=== PATIENT | female | born 2000 | race Caucasian/White ===

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

== ENCOUNTER 2020-03-27 09:20 | Emergency (ER) | payer BC, MEDICAID ==
[~2020-03-27] VITALS: Ht 162.6 cm; Wt 85.0 kg
[~2020-03-27 09:20] MED LIST changes: +ZOFRAN4 MG/TAB PO
[2020-03-27] MEDS ORDERED: CVS OMEPRAZOLE20 M1 PO (09:46)
[2020-03-27] MEDS ORDERED: COLD (09:47)
[2020-03-27] MEDS ORDERED: [UNRECOGNIZED DRUG - OTHER] (09:47)
[2020-03-27 10:14] LABS: IMMATURE GRANULOCYTES 0.4 % (0.0-5.0); MEAN CELL VOLUME 86.8 fL CALC (80.0-100.0); MEAN CORPUSCULAR HGB 27.6 pG CALC (26.0-32.0); MEAN CORPUSCULAR HGB CONC 31.9 g/dL CAL (32.0-36.0); NEUT# 5.74 thou/uL (2.00-7.15); RED BLOOD COUNT 4.16 mill/uL (4.20-5.60); RED CELL DISTRI WIDTH 12.6 % (11.5-15.5)
[2020-03-27 10:24] LABS: URINE BILIRUBIN - DIPSTICK NEGATIVE (NEGATIVE); URINE BLOOD DIPSTICK NEGATIVE (NEGATIVE); URINE COLOR YELLOW; URINE GLUCOSE - DIPSTICK NEGATIVE (NEGATIVE); URINE KETONE NEGATIVE (NEGATIVE); URINE LEUK ESTERASE NEGATIVE (NEGATIVE); URINE NITRITE - DIPSTICK NEGATIVE (Negative); URINE PROTEIN - DIPSTICK NEGATIVE (NEG-TRACE); URINE UROBILINOGEN - DIPSTICK 0.2 E.U./dL (0.2)
[2020-03-27 10:25] LABS: HEMATOCRIT 36.1 % (37.0-47.0); HEMOGLOBIN 11.5 g/dl (12.0-16.0)
[2020-03-27 10:28] LABS: CARBON DIOXIDE 21 mmol/l (22-30); CHLORIDE 107 mmol/l (95-108); CREATININE 0.4 mg/dL (0.5-1.0); GFR > 60 ML/MIN (>=60 (CALC)); GFR FOR AFR.AMER. > 60 ML/MIN (>=60 (CALC)); SGOT/AST 16 u/l (14-36); SODIUM 136 mmol/l (137-146)
[2020-03-27 10:30] LABS: ANION GAP 12 (6-22 (CALC)); POTASSIUM 3.9 mmol/l (3.5-5.1)
[2020-03-27 10:34] LABS: ALBUMIN 3.1 g/dL (3.2-5.0); ALKALINE PHOSPHATASE 138 u/l (38-126); BILIRUBIN, TOTAL 0.2 mg/dL (0.0-1.4); BUN 2 mg/dL (8-21); BUN/CREATININE RATIO 5 (12-20 (CALC)); TOTAL PROTEIN 5.8 g/dL (6.3-8.2)
[2020-03-27 13:00] VITALS: BP 115/80
== END 2020-03-27 13:00 | DRG 833 ==
LOC: ED 09:20
PROVIDERS: Family Medicine
DX: O99.283 Endocrine, nutritional and metabolic diseases complicating pregnancy, third trimester (principal); E86.0 Dehydration; O99.413 Diseases of the circulatory system complicating pregnancy, third trimester; R00.0 Tachycardia, unspecified; Z3A.34 34 weeks gestation of pregnancy; Z20.828 Contact with and (suspected) exposure to other viral communicable diseases

== ENCOUNTER 2020-06-10 03:31 | Emergency (ER) | payer BC, MEDICAID ==
[~2020-06-10] VITALS: Ht 157.5 cm; Wt 81.8 kg
[~2020-06-10 03:31] MED LIST changes: +COLD; +CVS OMEPRAZOLE20 M1 PO; +[UNRECOGNIZED DRUG - OTHER]
[2020-06-10 03:56] LABS: HEMATOCRIT 34.4 % (37.0-47.0); HEMOGLOBIN 10.2 g/dl (12.0-16.0); IMMATURE GRANULOCYTES 0.1 % (0.0-5.0); MEAN CORPUSCULAR HGB 23.3 pG CALC (26.0-32.0); MEAN CORPUSCULAR HGB CONC 29.7 g/dL CAL (32.0-36.0); NEUT# 2.99 thou/uL (2.00-7.15); RED BLOOD COUNT 4.38 mill/uL (4.20-5.60); RED CELL DISTRI WIDTH 14.9 % (11.5-15.5)
[2020-06-10 03:57] LABS: MEAN CELL VOLUME 78.5 fL CALC (80.0-100.0)
[2020-06-10 04:11] LABS: ALKALINE PHOSPHATASE 117 u/l (38-126); AMYLASE 84 u/l (30-110); BILIRUBIN, TOTAL 0.2 mg/dL (0.0-1.4); BUN 13 mg/dL (8-21); BUN/CREATININE RATIO 16 (12-20 (CALC)); CHLORIDE 107 mmol/l (95-108); CREATININE 0.8 mg/dL (0.5-1.0); GFR > 60 ML/MIN (>=60 (CALC)); GFR FOR AFR.AMER. > 60 ML/MIN (>=60 (CALC)); LIPASE 134 u/l (23-300); POTASSIUM 3.5 mmol/l (3.5-5.1); SODIUM 141 mmol/l (137-146)
[2020-06-10 04:12] LABS: ALBUMIN 4.3 g/dL (3.2-5.0); ANION GAP 11 (6-22 (CALC)); CARBON DIOXIDE 27 mmol/l (22-30); SGOT/AST 45 u/l (14-36); TOTAL PROTEIN 7.3 g/dL (6.3-8.2)
[2020-06-10 06:29] LABS: URINE BILIRUBIN - DIPSTICK NEGATIVE (NEGATIVE); URINE BLOOD DIPSTICK NEGATIVE (NEGATIVE); URINE COLOR YELLOW; URINE GLUCOSE - DIPSTICK NEGATIVE (NEGATIVE); URINE KETONE NEGATIVE (NEGATIVE); URINE LEUK ESTERASE NEGATIVE (NEGATIVE); URINE NITRITE - DIPSTICK NEGATIVE (Negative); URINE PROTEIN - DIPSTICK NEGATIVE (NEG-TRACE); URINE UROBILINOGEN - DIPSTICK 0.2 E.U./dL (0.2)
[2020-06-10] MEDS ORDERED: Levaquin PO (06:36)
[2020-06-10] MEDS ORDERED: ZOFRAN4 MG/TAB PO (06:36)
[2020-06-10] MEDS ORDERED: HYDROCO/APAP1 TA9 PO (06:36)
[2020-06-10 06:55] VITALS: BP 134/72
== END 2020-06-10 06:55 | disposition home or self-care (01) | DRG 776 ==
LOC: ED 03:31
DX: O99.63 Diseases of the digestive system complicating the puerperium (principal); K80.20 Calculus of gallbladder without cholecystitis without obstruction
CPT/HCPCS: Q9967

== ENCOUNTER 2020-06-15 10:41 | Emergency (ER) | payer BC, MEDICAID ==
[~2020-06-15] VITALS: Ht 157.5 cm; Wt 85.0 kg
[~2020-06-15 10:41] MED LIST changes: +HYDROCO/APAP1 TA9 PO; +Levaquin PO
[2020-06-15 11:02] LABS: HEMATOCRIT 35.3 % (37.0-47.0); HEMOGLOBIN 10.4 g/dl (12.0-16.0); IMMATURE GRANULOCYTES 0.3 % (0.0-5.0); MEAN CELL VOLUME 78.6 fL CALC (80.0-100.0); MEAN CORPUSCULAR HGB 23.2 pG CALC (26.0-32.0); MEAN CORPUSCULAR HGB CONC 29.5 g/dL CAL (32.0-36.0); NEUT# 8.14 thou/uL (2.00-7.15); RED BLOOD COUNT 4.49 mill/uL (4.20-5.60)
[2020-06-15 11:19] LABS: ALBUMIN 4.2 g/dL (3.2-5.0); BUN 10 mg/dL (8-21); BUN/CREATININE RATIO 11 (12-20 (CALC)); CARBON DIOXIDE 25 mmol/l (22-30); CHLORIDE 107 mmol/l (95-108); CREATININE 0.9 mg/dL (0.5-1.0); GFR > 60 ML/MIN (>=60 (CALC)); GFR FOR AFR.AMER. > 60 ML/MIN (>=60 (CALC)); SODIUM 139 mmol/l (137-146); TOTAL PROTEIN 7.3 g/dL (6.3-8.2)
[2020-06-15 11:35] LABS: ALKALINE PHOSPHATASE 342 u/l (38-126); ANION GAP 11 (6-22 (CALC)); BILIRUBIN, TOTAL 2.6 mg/dL (0.0-1.4); POTASSIUM 4.4 mmol/l (3.5-5.1); SGOT/AST 280 u/l (14-36)
[2020-06-15 11:36] LABS: AMYLASE 2326 u/l (30-110)
[2020-06-15 11:55] LABS: LIPASE 65229 u/l (23-300)
[2020-06-15 14:44] VITALS: BP 121/78
[2020-06-15 18:35] LABS: URINE BLOOD DIPSTICK NEGATIVE (NEGATIVE); URINE COLOR YELLOW; URINE GLUCOSE - DIPSTICK NEGATIVE (NEGATIVE); URINE KETONE NEGATIVE (NEGATIVE); URINE LEUK ESTERASE NEGATIVE (NEGATIVE); URINE NITRITE - DIPSTICK NEGATIVE (Negative); URINE PROTEIN - DIPSTICK NEGATIVE (NEG-TRACE); URINE SPECIFIC GRAVITY 1.025; URINE UROBILINOGEN - DIPSTICK 0.2 E.U./dL (0.2)
[2020-06-15 18:36] LABS: URINE BILIRUBIN - DIPSTICK NEGATIVE (NEGATIVE)
== END 2020-06-15 14:45 | disposition short-term general hospital (02) | DRG 446 ==
LOC: ED 10:41
PROVIDERS: Emergency Medicine
DX: K80.20 Calculus of gallbladder without cholecystitis without obstruction (principal); K83.8 Other specified diseases of biliary tract; Z20.828 Contact with and (suspected) exposure to other viral communicable diseases
CPT/HCPCS: Q9967; S0164

== ENCOUNTER 2021-11-30 19:24 | Emergency (ER) | payer MEDICAID | END 2021-11-30 20:59 | disposition left against medical advice (07) | DRG 951 | LOC: ED 19:24 → LWOBS 20:59 → ED 21:09 | DX: Z53.21 Procedure and treatment not carried out due to patient leaving prior to being seen by health care provider (principal) ==

== ENCOUNTER 2021-11-30 21:42 | Emergency (ER) | payer MEDICAID ==
[~2021-11-30] VITALS: Ht 157.5 cm; Wt 82.0 kg
[2021-11-30 22:26] LABS: IMMATURE GRANULOCYTES 0.1 % (0.0-5.0); MEAN CORPUSCULAR HGB 30.4 pG CALC (26.0-32.0); MEAN CORPUSCULAR HGB CONC 32.6 g/dL CAL (32.0-36.0); NEUT# 6.19 thou/uL (2.00-7.15); RED BLOOD COUNT 5.06 mill/uL (4.20-5.60); RED CELL DISTRI WIDTH 12.4 % (11.5-15.5)
[2021-11-30 22:30] LABS: HEMATOCRIT 47.3 % (37.0-47.0); HEMOGLOBIN 15.4 g/dl (12.0-16.0); MEAN CELL VOLUME 93.5 fL CALC (80.0-100.0)
[2021-11-30 22:39] LABS: ALBUMIN 4.8 g/dL (3.2-5.0); AMYLASE 90 u/l (30-110); BUN 11 mg/dL (7-17); BUN/CREATININE RATIO 12 (12-20 (CALC)); CARBON DIOXIDE 24 mmol/l (22-30); CHLORIDE 102 mmol/l (95-108); CREATININE 0.9 mg/dL (0.5-1.0); GFR FOR AFR.AMER. > 60 ML/MIN (>=60 (CALC)); GFR OTHER RACES > 60 ML/MIN (>=60 (CALC)); LIPASE 78 u/l (23-300); SODIUM 140 mmol/l (137-146); TOTAL PROTEIN 8.1 g/dL (6.3-8.2)
[2021-11-30 22:44] LABS: ALKALINE PHOSPHATASE 84 u/l (38-126); ANION GAP 17 (6-22 (CALC)); BILIRUBIN, TOTAL 0.5 mg/dL (0.0-1.4); POTASSIUM 3.2 mmol/l (3.5-5.1); SGOT/AST 22 u/l (14-36)
[2021-11-30 22:45] VITALS: BP 112/71
[2021-11-30 23:00] VITALS: BP 110/73
[2021-11-30 23:30] VITALS: BP 104/69
[2021-11-30 23:45] VITALS: BP 112/73
[2021-12-01 00:04] VITALS: BP 112/73
== END 2021-12-01 00:17 | disposition home or self-care (01) ==
LOC: ED 21:42
DX: U07.1 COVID-19 (principal); R10.32 Left lower quadrant pain; R10.31 Right lower quadrant pain; R11.2 Nausea with vomiting, unspecified; E87.6 Hypokalemia

== ENCOUNTER 2023-02-07 10:10 | Emergency (ER) | payer OTHER ==
[~2023-02-07] VITALS: Ht 157.5 cm; Wt 81.2 kg
[2023-02-07] VITALS (8 sets, daily range): BP systolic 105–129; BP diastolic 68–92
[2023-02-07] MEDS ORDERED: XANAX1 MG PO (10:29)
[2023-02-07 15:48] LABS: BASO% 0.8 % (0-3); EOS% 3.6 % (0-8); HEMATOCRIT 44.9 % (37.0-47.0); HEMOGLOBIN 14.6 g/dl (12.0-16.0); LYMPH% 25.1 % (15-41); MEAN CELL VOLUME 93.2 fL CALC (80.0-100.0); MEAN CORPUSCULAR HGB 30.3 pG CALC (26.0-32.0); MEAN CORPUSCULAR HGB CONC 32.5 g/dL CAL (32.0-36.0); MONO% 6.2 % (2-13); NEUT# 4.95 thou/uL (2.00-7.15); NEUT% 64.3 % (42-76); RED BLOOD COUNT 4.82 mill/uL (4.20-5.60); RED CELL DISTRI WIDTH 11.9 % (11.5-15.5)
[2023-02-07 15:50] LABS: URINE BILIRUBIN - DIPSTICK Negative (NEGATIVE); URINE BLOOD DIPSTICK Negative (NEGATIVE); URINE CLARITY Clear; URINE COLOR Yellow; URINE GLUCOSE - DIPSTICK Negative (NEGATIVE); URINE KETONE Negative (NEGATIVE); URINE LEUK ESTERASE Negative (Negative); URINE NITRITE - DIPSTICK Negative (Negative); URINE PROTEIN - DIPSTICK Negative (NEG-TRACE); URINE SPECIFIC GRAVITY 1.015; URINE UROBILINOGEN - DIPSTICK 0.2 E.U./dL (0.2)
[2023-02-07 15:59] LABS: ALBUMIN 4.1 g/dL (3.2-5.0); ALKALINE PHOSPHATASE 65 u/l (38-126); BILIRUBIN, TOTAL 0.4 mg/dL (0.02-1.3); BUN 11 mg/dL (7-17); BUN/CREATININE RATIO 13 (12-20 (CALC)); CARBON DIOXIDE 24 mmol/l (22-30); CHLORIDE 107 mmol/l (95-108); CREATININE 0.8 mg/dL (0.5-1.0); GFR FOR AFR.AMER. > 60 ML/MIN (>=60 (CALC)); GFR OTHER RACES > 60 ML/MIN (>=60 (CALC)); SGOT/AST 27 u/l (14-36); SODIUM 137 mmol/l (137-146); TOTAL PROTEIN 6.9 g/dL (6.3-8.2)
[2023-02-07 16:00] LABS: ANION GAP 10 (6-22 (CALC))
== END 2023-02-07 16:57 | disposition home or self-care (01) ==
LOC: ED 10:10
PROVIDERS: Family Medicine
DX: N83.202 Unspecified ovarian cyst, left side (principal); F17.200 Nicotine dependence, unspecified, uncomplicated

== ENCOUNTER 2024-08-22 09:15 | Emergency (ER) | payer OTHER ==
[2024-08-22] VITALS (9 sets, daily range): BP systolic 96–130; BP diastolic 55–103
[~2024-08-22] VITALS: Ht 157.5 cm; Wt 84.0 kg
[~2024-08-22 09:15] MED LIST changes: +XANAX1 MG PO
[2024-08-22] MEDS ORDERED: ACETAMINOPHEN 325 MG/TAB PO ONE (09:45)
[2024-08-22] MEDS ORDERED: ONDANSETRON HCl 4 MG/2 ML SDV IV ONE (09:50)
[2024-08-22] MEDS ORDERED: SODIUM CHLORIDE 0.9% 1,000 ML IV ONE ×2 (09:55)
[2024-08-22 10:16] LABS: BASO% 0.2 % (0-3); EOS% 0.2 % (0-8); HEMATOCRIT 48.7 % (37.0-47.0); HEMOGLOBIN 15.9 g/dl (12.0-16.0); IMMATURE GRANULOCYTES 0.2 % (0.0-5.0); LYMPH% 4.3 % (15-41); MEAN CELL VOLUME 91.5 fL CALC (80.0-100.0); MEAN CORPUSCULAR HGB 29.9 pG CALC (26.0-32.0); MEAN CORPUSCULAR HGB CONC 32.6 g/dL CAL (32.0-36.0); MONO% 6.9 % (2-13); NEUT# 5.77 thou/uL (2.00-7.15); NEUT% 88.2 % (42-76); RED BLOOD COUNT 5.32 mill/uL (4.20-5.60); RED CELL DISTRI WIDTH 12.3 % (11.5-15.5)
[2024-08-22 10:28] LABS: ALBUMIN 4.9 g/dL (3.2-5.0); CREATININE 0.8 mg/dL (0.5-1.0); POTASSIUM 3.6 mmol/l (3.5-5.1); TOTAL PROTEIN 8.1 g/dL (6.3-8.2)
[2024-08-22 10:30] LABS: BILIRUBIN, TOTAL 0.7 mg/dL (0.02-1.3)
[2024-08-22] MEDS ORDERED: TAM75CAP PO (11:10)
[2024-08-22 11:29] LABS: URINE BLOOD DIPSTICK Trace-lysed (NEGATIVE); URINE GLUCOSE - DIPSTICK Negative (NEGATIVE); URINE KETONE 40 mg/dL (NEGATIVE); URINE LEUK ESTERASE Negative (NEGATIVE); URINE NITRITE - DIPSTICK Negative (Negative); URINE PH 6.5 (4.5-8.0); URINE PROTEIN - DIPSTICK 100 mg/dL (NEG-TRACE); URINE SPECIFIC GRAVITY 1.025; URINE UROBILINOGEN - DIPSTICK 0.2 E.U./dL (0.2)
[2024-08-22 11:43] LABS: URINE COLOR Yellow
[2024-08-22 11:44] LABS: URINE EPITHELIAL CELLS MODERATE EPI/hpf (0-FEW); URINE MUCUS MANY hpf (NONE-FEW); URINE WBC 0-2 WBC/hpf (0-5)
== END 2024-08-22 11:40 | disposition home or self-care (01) ==
LOC: ED 09:15
PROVIDERS: Family Medicine
DX: J10.1 Influenza due to other identified influenza virus with other respiratory manifestations (principal); Z20.822 Contact with and (suspected) exposure to COVID-19
CPT/HCPCS: J2405